=== PATIENT | female | born 1965 | race Caucasian/White ===

== ENCOUNTER 2022-05-02 23:22 | Emergency (ER) | payer OTHER ==
--- NOTE | 2022-05-03 02:47 | ER ---
Nurse's Notes [facility] Name: Roberto Washington Age: 56 yrs Sex: Female : 1965 Arrival Date: 05/02/2022 Time: 23:29 Bed 4 Private MD: Diagnosis: Pain in left knee Presentation: 05/02 23:41 Chief complaint: Patient states: PATIENT REPORTS LEFT KNEE PAIN YESTERDAY THAT HAS bh1 MOVED TO HER CALF TODAY AND IS CAUSING SWELLING TO HER LOWER LEFT LEG. Coronavirus screen: Vaccine status: Patient reports receiving the 2nd dose of the covid vaccine. At this time, the client does not indicate any symptoms associated with coronavirus-19. Ebola Screen: Patient negative for fever greater than or equal to 101.5 degrees Fahrenheit, and additional compatible Ebola Virus Disease symptoms. Initial Sepsis Screen: Does the patient meet any 2 criteria? No. Patient's initial sepsis screen is negative. Does the patient have a suspected source of infection? No. Patient's initial sepsis screen is negative. Risk Assessment: Do you want to hurt yourself or someone else? Patient reports no desire to harm self or others. Onset of symptoms was May 02, 2022. 23:41 Method Of Arrival: Wheelchair [facility] 23:41 Acuity: ELISABETH 4 1 Triage Assessment: 23:43 General: Appears in no apparent distress. Behavior is calm, cooperative, appropriate bh1 for age. Pain: Complains of pain in lateral aspect of left calf and left calf. 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 - Social history:: Smoking status: Patient denies any tobacco usage or history of. Screenin/24 01:25 Abuse screen: Denies threats or abuse. Denies injuries from another. Nutritional as6 screening: No deficits noted. Tuberculosis screening: No symptoms or risk factors identified. Fall Risk None identified. Assessment: 00:00 General: Appears uncomfortable, Behavior is calm, cooperative. Pain: Complains of pain as6 in left leg and left calf and lateral aspect of left calf. Neuro: Level of Consciousness is awake, alert. Respiratory: Respiratory effort is even, unlabored. Musculoskeletal: Swelling present in left leg and left calf and lateral aspect of left calf Reports pain in left leg and left calf and lateral aspect of left calf. Vital Signs: 05/02 23:41 BP 158 / 93; Pulse 75; Resp 20; Temp 98.3(TE); Pulse Ox 99% on R/A; Weight 99.79 kg; bh1 Height 5 ft. 4 in. (162.56 cm); Pain 8/10; 05/03 01:00 BP 135 / 85; Pulse 61; Resp 18 S; Pulse Ox 100% on R/A; as6 02:56 BP 140 / 77; Pulse 56; Resp 16 S; Pulse Ox 99% on R/A; as6 05/02 23:41 Body Mass Index 37.76 (99.79 kg, 162.56 cm) 1 ED Course: 05/02 23:29 Patient arrived in ED. bp1 23:43 Triage completed. bh1 23:43 Arm band placed on right wrist. bh1 23:44 Alberto Strauss DO is Attending Physician. ms3 07 00:36 Extremity Venous Uni Ltd US In Process Unspecified. EDMS 01:03 Knee Left 3 View XRAY In Process Unspecified. EDMS 01:24 Rodrigue Bahena, RN is Primary Nurse. as6 01:25 Bed in low position. Call light in reach. Side rails up X 1. as6 02:46 Adam Hobson MD is Referral Physician. ms3 02:56 No provider procedures requiring assistance completed. Patient did not have IV access as6 during this emergency room visit. 03:06 Crutch training done. Knee immobilizer applied on left knee. mh5 Administered Medications: No medications were administered Medication: 02:56 VIS not applicable for this client. as6 Outcome: 02:46 Discharge ordered by . ms3 03:28 Discharged to home ambulatory, with crutches, with family. as6 03:28 Condition: stable 03:28 Discharge instructions given to patient, Instructed on discharge instructions, follow up and referral plans. medication usage, Demonstrated understanding of instructions, follow-up care, medications, Prescriptions given X 1. 03:29 Patient left the ED. as6 Signatures: Dispatcher [employer] EDMS Patti Zhang 5 Alberto Strauss DO DO ms3 [place], Rodrigue Valente, RN RN as6 Keena Sebastian, RN RN bh1
--- NOTE | 2022-05-03 02:47 | EDPHYS ---
Physician Documentation [facility] Name: Roberto Washington Age: 56 yrs Sex: Female : 1965 Arrival Date: 05/02/2022 Time: 23:29 Bed 4 Private MD: ED Physician Alberto Strauss HPI: 05/03 02:46 This 56 yrs old Female presents to ER via Wheelchair with complaints of Leg Swelling, - ms3 Left. 02:46 56-year-old female with no past medical history presents for left knee swelling, pain, ms3 calf pain with swelling. Patient rates her discomfort an 8/10 describes the discomfort as aching. Patient states movement of her left leg makes the pain worse. Patient denies alleviating factors. Patient denies fevers, chills, nausea, vomiting, body aches.. 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 - Social history:: Smoking status: Patient denies any tobacco usage or history of. ROS: 05/03 02:46 Constitutional: Negative for fever, and chills. Neck: Negative for injury, pain, and ms3 swelling, Cardiovascular: Negative for chest pain, and palpitations. Respiratory: Negative for shortness of breath, cough, wheezing, and pleuritic chest pain, Abdomen/GI: Negative for abdominal pain, nausea, vomiting, diarrhea, and constipation. Skin: Negative for injury, rash, and discoloration. MS/extremity: Positive for pain, swelling, of the left leg and left calf. Exam: 02:46 Constitutional: This is a well developed, well nourished patient who is awake, alert, ms3 and in no acute distress. Neck: Trachea midline, no cervical lymphadenopathy. Supple, full range of motion without nuchal rigidity, or vertebral point tenderness. No Meningismus. Chest/axilla: Normal chest wall appearance and motion. Nontender with no deformity. Cardiovascular: Regular rate and rhythm with a normal S1 and S2. No gallops, murmurs, or rubs. Normal PMI, no JVD. No pulse deficits. Respiratory: Lungs have equal breath sounds bilaterally, clear to auscultation and percussion. No rales, rhonchi or wheezes noted. No increased work of breathing, no retractions or nasal flaring. Abdomen/GI: Soft, non-tender, with normal bowel sounds. No distension or tympany. No guarding or rebound. No evidence of tenderness throughout. Skin: Warm, dry with normal turgor. Normal color with no rashes, no lesions, and no evidence of cellulitis. Psych: Awake, alert, with orientation to person, place and time. Behavior, mood, and affect are within normal limits. 02:46 Musculoskeletal/extremity: Extremities: noted in the Left knee: pain, tenderness, ROM: Circulation is intact in all extremities. Sensation intact. Compartment Syndrome exam of affected extremity: is normal. Vital Signs: 05/02 23:41 BP 158 / 93; Pulse 75; Resp 20; Temp 98.3(TE); Pulse Ox 99% on R/A; Weight 99.79 kg; 1 Height 5 ft. 4 in. (162.56 cm); Pain 8/10; 05/03 01:00 BP 135 / 85; Pulse 61; Resp 18 S; Pulse Ox 100% on R/A; as6 02:56 BP 140 / 77; Pulse 56; Resp 16 S; Pulse Ox 99% on R/A; as6 05/02 23:41 Body Mass Index 37.76 (99.79 kg, 162.56 cm) [facility] MDM: 05/02 23:49 Patient medically screened. ms3 05/03 02:46 Differential diagnosis: tendonitis, DVT vs OA. Data reviewed: vital signs, nurses ms3 notes, radiologic studies, and as a result, I will discharge patient. Data interpreted: Pulse oximetry: on room air is 99 %. Interpretation: normal. Counseling: I had a detailed discussion with the patient and/or guardian regarding: the historical points, exam findings, and any diagnostic results supporting the discharge/admit diagnosis, radiology results, the need for outpatient follow up, to return to the emergency department if symptoms worsen or persist or if there are any questions or concerns that arise at home. ED course: On re-evaluation patient is improved, A/O x4, nad, non-toxic, speaking full sentences.. 05/02 23:58 Order name: Knee Left 3 View XRAY ms3 05/02 23:58 Order name: Extremity Venous Uni Ltd US ms3 05/03 02:47 Order name: Knee Immobilizer; Complete Time: 03:06 lp1 05/03 02:47 Order name: Crutches; Complete Time: 03:06 lp1 Administered Medications: No medications were administered Disposition Summary: 05/03/22 02:46 Discharge Ordered Location: Home ms3 Condition: Stable ms3 Diagnosis - Pain in left knee ms3 Followup: ms3 - With: Adam Hobson MD - When: 2 - 3 days - Reason: Re-evaluation by your physician Discharge Instructions: - Discharge Summary Sheet ms3 - Acute Knee Pain, Adult ms3 Forms: - Medication Reconciliation Form ms3 - Thank You Letter ms3 - Antibiotic Education ms3 - Prescription Opioid Use ms3 Prescriptions: - Ibuprofen 600 mg Oral Tablet - take 1 tablet by ORAL route every 6 hours As needed take with food; 30 tablet; ms3 Refills: 0, Product Selection Permitted Signatures: Dispatcher [employer] [place]APR Gracie Clinton RN RN 1 Alberto Strauss DO DO ms3 Keena Sebastian RN RN 1
[2022-05-03 03:44] VITALS: TEMP 98.3
[2022-05-03 04:02] VITALS: BP 140/77; O2SAT 99
--- NOTE | 2022-05-04 13:14 | RAD REPORT ---
EXAM DESCRIPTION: RAD - Knee Left 3 View - 05/03/2022 1:01 am CLINICAL HISTORY: 56 years Female, PAIN COMPARISON: None. IMPRESSION: No fracture or dislocation. Joint spaces are grossly preserved. Soft tissues are unremarkable. Suggestion of varicose veins in the medial soft tissues. Electronically signed by: Augusto Ann DO 05/03/2022 1:44 AM CDT Due to temporary technical issues with the PACS/Fluency reporting system, reports are being signed by the in house radiologists without review as a courtesy to insure prompt reporting. The interpreting radiologist is fully responsible for the content of the report.
--- NOTE | 2022-05-04 15:08 | RAD REPORT ---
EXAM DESCRIPTION: US - Extremity Venous Uni Ltd - 05/03/2022 12:34 am CLINICAL HISTORY: 56 years Female PAIN TECHNIQUE: Grayscale and color Doppler images of the deep veins of the left lower extremity were per formed on 05/03/2022 at 12: 15 AM. COMPARISON: None. FINDINGS: Grayscale and color Doppler images of the deep veins of the left lower extremity was perfo rmed. The grayscale images reveal normal compressibility of the deep veins. The Doppler images reveal normal flow, phasicity with respiration and normal augmentation with compression. The color flow sri ges reveal normal saturation of flow within the deep veins of the left lower extremity. No intralumin al echoes are identified to suggest nonocclusive thrombus. The superficial veins are patent. No additional abnormalities are identified. IMPRESSION: No evidence of deep venous thrombosis in the left lower extremity. Electronically signed by: Nataly Chin DO 05/03/2022 3:00 AM CDT Due to temporary technical issues with the PACS/Fluency reporting system, reports are being signed by the in house radiologists without review as a courtesy to insure prompt reporting. The interpreting radiologist is fully responsible for the content of the report.
== END 2022-05-03 03:29 | disposition home or self-care (01) ==
LOC: ER 23:22
DX: M25.562 Pain in left knee (principal); R22.42 Localized swelling, mass and lump, left lower limb; I10 Essential (primary) hypertension; Z88.6 Allergy status to analgesic agent
CPT/HCPCS: 93971; 99283